=== PATIENT | female | born 1960 | race Caucasian/White ===

== ENCOUNTER 2020-02-22 18:59 | Emergency (ER) | payer MEDICAID ==
[~2020-02-22] VITALS: Ht 157.5 cm; Wt 68.0 kg
[2020-02-22 19:05] VITALS: Ht 157.5 cm; Wt 68.0 kg
[2020-02-22 22:00] VITALS: BP 154/98
== END 2020-02-22 21:29 | disposition home or self-care (01) ==
LOC: ED 18:59
DX: T63.441A Toxic effect of venom of bees, accidental (unintentional), initial encounter (principal); Y92.89 Other specified places as the place of occurrence of the external cause
CPT/HCPCS: J1200; J2930